=== PATIENT | female | born 1965 | race Caucasian/White ===

== ENCOUNTER 2017-11-19 17:16 | Emergency (ER) | payer MEDICAID, OTHER ==
[2017-11-19 18:00] LABS: Urine Appearance Cloudy; Urine Blood Negative (Negative); Urine Color Yellow; Urine Ketones Negative (Negative); Urine Protein Negative (Negative); Urine Specific Gravity 1.024 (1.010-1.030); Urine Urobilinogen Negative (Negative)
[2017-11-19 18:16] LABS: ABS Basophils 0.1 10^3/ul (0-0.2); ABS Eosinophils 0.1 10^3/ul (0-0.6); ABS Lymphocytes 1.4 10^3/ul (1.0-4.8); ABS Monocytes 0.6 10^3/ul (0-0.8); ABS Neutrophils 6.7 10^3/ul (1.5-7.7); ABS Nucleated RBC 0 10^3/ul; Eosinophil % 0.6 % (0-6); Hematocrit 39 % (35-47); Hemoglobin 13.5 g/dl (12.0-16.0); Lymphocyte % 15.4 % (25-47); Mean Corpuscular HGB Conc 35 g/dl (31-36); Mean Corpuscular Hemoglobin 27 pg (27-31); Mean Corpuscular Volume 78 fL (80-97); Mean Platelet Volume 8 um3 (7.4-10.4); Nucleated Red Blood Cells % 0.1; Platelet Count 252 10^3/ul (150-450); Red Blood Count 4.99 10^6/ul (4.0-5.4); Red Cell Distribution Width 14 % (10.5-15); White Blood Count 8.8 10^3/ul (3.5-10.8)
[2017-11-19 18:31] LABS: EGFR Non-African American 103.4 (>60)
--- NOTE | 2017-11-19 18:58 | RAD ---
Indication: Low back pain. 3 views of lumbar spine demonstrates vertebral bodies to be normal in height. Disc spaces all well-preserved. Pedicles appear grossly intact. IMPRESSION: No fracture of the lumbar spine is noted.
--- NOTE | 2017-11-19 18:59 | RAD ---
Indication: Back pain. 2 views of the thoracic spine demonstrates straightening of the normal lordosis. No fractures identified. Patient is status post transsternal thoracotomy. IMPRESSION: No compression fracture is noted. Metallic artifact obscures the AP view.
[2017-11-19 19:02] VITALS: BP 118/77
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
== END 2017-11-19 19:10 | disposition home or self-care (01) ==
LOC: ED 17:16
DX: M54.5 Low back pain (principal); V89.2XXA Person injured in unspecified motor-vehicle accident, traffic, initial encounter; Y92.9 Unspecified place or not applicable
CPT/HCPCS: 36415; 72070; 72100; 80053; 81003; 81015; 85025; 87086; 99282